=== PATIENT | male | born 1980 | race Caucasian/White ===

== ENCOUNTER 2017-12-07 16:16 | Emergency (ER) | payer OTHER ==
[~2017-12-07] VITALS: Ht 188 cm; Wt 124.7 kg
[~2017-12-07 16:16] MED LIST: ACYCLOVIR 400400 M1 PO; ADVAIR 500-501 EACH INH; CIPROFLOXACIN500 M1 PO; IBUPROFEN 800800 M1 PO; PROAIR; TOPAMAX
[2017-12-07 16:51] LABS: ABSOLUTE EOSINOPHILS 0.3 thou/uL (0.0-0.7); ABSOLUTE LYMPHOCYTES 1.6 thou/uL (0.8-5.3); ABSOLUTE MONOCYTES 0.4 thou/uL (0.0-1.2); ABSOLUTE NEUTROPHILS 3.7 thou/uL (1.6-8.1); BASOPHILS 0.7 %; EOSINOPHILS 4.5 %; HEMATOCRIT 41.9 % (42.0-52.0); LYMPHOCYTES 26.4 %; MCH 28.7 pg (26.0-34.0); MCHC 33.5 g/dL (28.0-37.0); MCV 85.7 fL (80.0-100.0); MONOCYTES 6.7 %; MPV 7.7 fl. (7.2-11.1); NUCLEATED RBCS 0 /100WBC; PLATELET COUNT* 245 thou/uL (150-400); POLYS 61.7 %; RBC 4.89 mil/uL (4.50-6.00); RDW-CV 14.1 % (10.5-14.5); WBC 6.1 thou/uL (4.0-11.0)
[2017-12-07 17:08] LABS: CALCIUM 8.4 mg/dL (8.5-10.1); CREATININE 0.9 mg/dL (0.6-1.3); POTASSIUM 3.8 mmol/L (3.5-5.1)
[2017-12-07 17:13] LABS: ALBUMIN 3.7 g/dL (3.4-5.0); MAGNESIUM 1.7 mg/dL (1.8-2.4); TOTAL BILIRUBIN 0.2 mg/dL (<0.1-1.0); TOTAL PROTEIN 7.6 g/dL (6.4-8.2)
[2017-12-07 18:13] LABS: URINE BILIRUBIN NEGATIVE (Negative); URINE BLOOD NEGATIVE (Negative); URINE CLARITY CLEAR; URINE COLOR YELLOW; URINE GLUCOSE-RANDOM NEGATIVE (Negative); URINE KETONES NEGATIVE (Negative); URINE LEUKOCYTES-REFLEX NEGATIVE (Negative); URINE NITRITE-REFLEX NEGATIVE (Negative); URINE PROTEIN NEGATIVE (Negative); URINE UROBILINOGEN 0.2 E.U./dl (0.2-1.0)
[2017-12-07 18:21] LABS: AMP/METHAMP Negative (Negative); BARBITURATES Negative (Negative); BENZODIAZEPINES Negative (Negative); COCAINE Negative (Negative); METHADONE Negative (Negative); OPIATES Negative (Negative); PCP Negative (Negative); THC Negative (Negative)
[2017-12-07] MEDS ORDERED: ROBAXIN 750 MG750 M1 PO (18:33)
[2017-12-07 18:43] VITALS: BP 136/82
== END 2017-12-07 18:44 | disposition home or self-care (01) ==
LOC: M.ERS 16:16
PROVIDERS: Nurse Practitioner Family
DX: M79.1 Myalgia (principal); B34.9 Viral infection, unspecified; J45.909 Unspecified asthma, uncomplicated; Z88.5 Allergy status to narcotic agent

== ENCOUNTER 2020-04-24 15:20 | Emergency (ER) | payer OTHER ==
[~2020-04-24] VITALS: Ht 188 cm; Wt 122.5 kg
[~2020-04-24 15:20] MED LIST changes: +ROBAXIN 750 MG750 M1 PO
[2020-04-24] MEDS ORDERED: PROAIR HFA8.5 GM INH (15:25)
[2020-04-24] MEDS ORDERED: ADVAIR 500-501 EACH INH (15:25)
[2020-04-24 15:58] LABS: INFLUENZA A ANTIGEN Negative (Negative); INFLUENZA B ANTIGEN Negative (Negative)
[2020-04-24] MEDS ORDERED: VENTOLIN HFA 1818 GM INH (16:09)
[2020-04-24] MEDS ORDERED: ZPAK PO (16:09)
[2020-04-24] MEDS ORDERED: PREDNISONE 20 M20 MG PO (16:09)
[2020-04-24 16:51] VITALS: BP 138/76
== END 2020-04-24 16:52 | disposition home or self-care (01) ==
LOC: M.ERS 15:20
PROVIDERS: Family Medicine
DX: U07.1 COVID-19 (principal); J45.909 Unspecified asthma, uncomplicated; Z88.5 Allergy status to narcotic agent